=== PATIENT | female | born 1955 ===

== ENCOUNTER 2018-03-08 14:40 | Observation (INO) | payer BC, OTHER ==
[~2018-03-08] VITALS: Ht 162.6 cm; Wt 100.5 kg
[2018-03-08] MEDS ORDERED: SODIUM CHLORIDE FLUSH 10ML SYR IVF ONE (15:30)
[2018-03-08 15:54] LABS: BASOPHILS # (AUTO) 0.02 x10^3/uL (0-0.1); BASOPHILS % (AUTO) 0 % (0-1); EOSINOPHILS # (AUTO) 0.04 x10^3/uL (0-0.4); EOSINOPHILS % (AUTO) 1 % (1-7); LYMPHOCYTES # (AUTO) 2.77 x10^3/uL (1-3.4); LYMPHOCYTES % (AUTO) 42 % (22-44); MD NO; MEAN CORPUSCULAR VOLUME 91.2 fL (80-100); MEAN PLATELET VOLUME 9.2 fL (7.4-10.4); MONOCYTES # (AUTO) 0.65 x10^3/uL (0.2-0.8); MONOCYTES % (AUTO) 10 % (2-9); NEUTROPHILS # (AUTO) 3.15 x10^3/uL (1.8-6.8); NEUTROPHILS % (AUTO) 48 % (42-75); PLATELET COUNT 171 x10^3/uL (130-400); RED BLOOD COUNT 4.39 x10^6/uL (3.82-5.3); RED CELL DISTRIBUTION WIDTH 12.3 % (9.6-15.2)
[2018-03-08] MEDS ORDERED: SODIUM CHLORIDE 0.9% 1,000ML IVBOLUS ONE (16:00)
[2018-03-08] MEDS ORDERED: RIVAROXABAN 20 MG TABLET PO ONE (16:00)
[2018-03-08 16:04] LABS: ALANINE AMINOTRANSFERASE 36 U/L (12-78); ALBUMIN 3.2 g/dL (3.4-5.0); ANION GAP 7 mmol/L (5-15); CALCIUM 8.4 mg/dL (8.5-10.1); CHLORIDE 110 mmol/L (98-107); CREATININE 0.81 mg/dL (0.55-1.02)
[2018-03-08 16:09] LABS: ALKALINE PHOSPHATASE 63 U/L (45-117); BILIRUBIN,TOTAL 0.7 mg/dL (0.2-1.0); FREE T4 (FREE THYROXINE) 1.08 ng/dL (0.76-1.46); TOTAL PROTEIN 6.2 g/dL (6.4-8.2); TROPONIN I < 0.015 ng/mL (0.000-0.045)
[2018-03-08 16:15] LABS: INTERNATIONAL NORMALIZED RATIO 1.03 (0.93-1.1); PROTHROMBIN TIME 10.7 Seconds (9.6-11.5)
[2018-03-08] MEDS ORDERED: SIMV20TA3 PO (16:34)
[2018-03-08] MEDS ORDERED: LISI-170 PO (16:34)
[2018-03-08] MEDS ORDERED: DILTIAZEM 5 MG/ML, 5ML IVPush PRN (17:00)
[2018-03-08] MEDS ORDERED: MORPHINE SULFATE 4 MG/ML, 1ML IVPush PRN (17:00)
[2018-03-08] MEDS ORDERED: HYDROcodone/APAP 5/325 TABLET PO PRN (17:00)
[2018-03-08] MEDS ORDERED: POLYETHYLENE GLYCOL 17 GM PACKET PO PRN (17:00)
[2018-03-08] MEDS ORDERED: RIVAROXABAN 20 MG TABLET ONE (17:00)
[2018-03-08] MEDS ORDERED: ENOXAPARIN 40 MG/0.4 ML SQ SCH (17:00)
[2018-03-08] MEDS ORDERED: DOCUSATE 100 MG CAPSULE PO PRN (17:00)
[2018-03-08] MEDS ORDERED: ONDANSETRON 2MG/ML, 2ML IVPush PRN (17:00)
[2018-03-08] MEDS ORDERED: ACETAMINOPHEN 325 MG TABLET PO PRN (17:00)
[2018-03-08 17:39] LABS: TROPONIN I < 0.015 ng/mL (0.000-0.045)
[2018-03-08 18:23] VITALS: BP 160/83
[2018-03-08 18:37] VITALS: BP 119/79
[2018-03-08] MEDS: ENOXAPARIN 100 MG/ML SQ SCH (20:00)
[2018-03-08] MEDS: METOPROLOL TARTRATE 25 MG TABLET PO SCH (20:12)
[2018-03-08] MEDS: SODIUM CHLORIDE FLUSH 10ML SYR IVF SCH (20:13)
[2018-03-08] MEDS ORDERED: SIMVASTATIN 20 MG TABLET PO SCH (21:00)
[2018-03-08 23:31] LABS: TROPONIN I < 0.015 ng/mL (0.000-0.045)
[2018-03-09 00:44] VITALS: BP 110/69
[2018-03-09 05:39] LABS: CHOL/HDL RATIO 2.9; LDL/HDL RATIO 1.5 (0.5-3.0)
[2018-03-09] MEDS: METOPROLOL TARTRATE 25 MG TABLET PO SCH (05:51)
[2018-03-09 08:00] VITALS: BP 117/73
[2018-03-09] MEDS ORDERED: REGADENOSON 0.4 MG/5 ML SYRINGE ONE (08:40)
[2018-03-09] MEDS ORDERED: LISINOPRIL 5 MG TABLET PO SCH (09:00)
[2018-03-09] MEDS ORDERED: SENNA/DOCUSATE TABLET PO SCH (09:00)
[2018-03-09] MEDS: ENOXAPARIN 100 MG/ML SQ SCH (10:36)
[2018-03-09] MEDS: SODIUM CHLORIDE FLUSH 10ML SYR IVF SCH (10:37)
[2018-03-09 12:55] VITALS: BP 107/66
== END 2018-03-09 17:54 | disposition home or self-care (01) ==
LOC: ED 16:13 → INTOOBSV 16:15 → EDIP 16:15 → SUATTDRO 16:42 → 5SO 17:56
PROVIDERS: ADMIT Internal Medicine; ATTEND Internal Medicine
DX: I48.91 Unspecified atrial fibrillation (principal); R07.89 Other chest pain; I10 Essential (primary) hypertension; E78.5 Hyperlipidemia, unspecified; E66.9 Obesity, unspecified; E44.0 Moderate protein-calorie malnutrition; R00.2 Palpitations; Z68.38 Body mass index [BMI] 38.0-38.9, adult; Z79.899 Other long term (current) drug therapy
CPT/HCPCS: 36415; 71045; 78452; 80053; 80061; 83735; 83880; 84439; 84443; 84484; 85025; 85610; 93005; 93017; 93306; 96372; 99285; A9502; C9898; G0378; J1650; J2785; J7030